=== PATIENT | female | born 1995 | race Two or more races ===

== ENCOUNTER → 2016-07-06 | Outpatient (CLI) | payer OTHER ==
[~2016-07-06] MED LIST: LIDOCAINE 1%, 20ML ONE; OMNIPAQUE 350 MG/ML, 100ML BOTTLE ONE; SODIUM BICARBONATE 4.2%, 5ML ONE
== END | disposition home or self-care (01) ==
LOC: RAD 10:53
PROVIDERS: ATTEND Nurse Practitioner Primary Care
DX: E06.3 Autoimmune thyroiditis (principal); E55.9 Vitamin D deficiency, unspecified; E05.80 Other thyrotoxicosis without thyrotoxic crisis or storm; E61.1 Iron deficiency; D64.9 Anemia, unspecified; E01.1 Iodine-deficiency related multinodular (endemic) goiter; R06.83 Snoring; G47.30 Sleep apnea, unspecified; E78.2 Mixed hyperlipidemia; E04.1 Nontoxic single thyroid nodule
CPT/HCPCS: 70491; J3490; Q9967

== ENCOUNTER 2016-09-17 18:32 | Emergency (ER) | payer OTHER ==
[~2016-09-17] VITALS: Ht 165.1 cm; Wt 86.0 kg
[2016-09-17 18:41] VITALS: BP 147/96
== END 2016-09-17 19:40 | disposition home or self-care (01) ==
LOC: ED 19:34
DX: K64.4 Residual hemorrhoidal skin tags (principal); E05.90 Thyrotoxicosis, unspecified without thyrotoxic crisis or storm
CPT/HCPCS: 99281

== ENCOUNTER 2016-11-06 15:06 | Emergency (ER) | payer OTHER ==
[~2016-11-06] VITALS: Ht 165.1 cm; Wt 81.4 kg
[2016-11-06 15:06] VITALS: BP 139/88
[2016-11-06 16:54] LABS: HCG UR OBC PASS
== END 2016-11-06 17:45 | disposition home or self-care (01) ==
LOC: ED 17:42
DX: N30.90 Cystitis, unspecified without hematuria (principal); E11.9 Type 2 diabetes mellitus without complications
CPT/HCPCS: 81001; 81025; 87086; 99284

== ENCOUNTER 2016-12-10 16:54 | Emergency (ER) | payer OTHER ==
[~2016-12-10] VITALS: Ht 165.1 cm; Wt 80.4 kg
[2016-12-10] MEDS ORDERED: FAMOTIDINE 20 MG TABLET PO ONE (19:00)
[2016-12-10] MEDS ORDERED: FAMOTIDINE 20 MG TABLET ONE (19:14)
[2016-12-10 19:28] LABS: PATH.CAST-FLAG NOT PRESENT; SPERM-FLAG NOT PRESENT; SRC-FLAG NOT PRESENT; XTAL-FLAG NOT PRESENT; YLC-FLAG NOT PRESENT
[2016-12-10 19:31] LABS: HCG UR OBC PASS
[2016-12-10] MEDS ORDERED: FLUCONAZOLE 100 MG TABLET PO ONE (20:00)
[2016-12-10 20:21] VITALS: BP 118/75
== END 2016-12-10 20:22 | disposition home or self-care (01) ==
LOC: ED 20:16
DX: B37.3 Candidiasis of vulva and vagina (principal); R30.0 Dysuria
CPT/HCPCS: 81001; 81025; 87086; 99284; Q0177

== ENCOUNTER 2017-01-27 16:04 | Emergency (ER) | payer OTHER ==
[~2017-01-27] VITALS: Ht 167.6 cm; Wt 83.6 kg
[2017-01-27] MEDS ORDERED: ONDANSETRON 2MG/ML, 2ML ONE (16:24)
[2017-01-27] MEDS ORDERED: SODIUM CHLORIDE 0.9% 1,000ML IVBOLUS ONE (16:30)
[2017-01-27] MEDS ORDERED: ONDANSETRON 2MG/ML, 2ML IVPush ONE (16:30)
[2017-01-27] MEDS ORDERED: SODIUM CHLORIDE FLUSH 10ML SYR IVF ONE (16:30)
[2017-01-27 16:51] LABS: HEMATOCRIT 44.6 % (34.6-47.8); HEMOGLOBIN 14.6 g/dL (11.7-16.4); WHITE BLOOD COUNT 13.7 x10^3/uL (3.4-10)
[2017-01-27 16:57] LABS: BLOOD UREA NITROGEN 8 mg/dL (7-18)
[2017-01-27] MEDS ORDERED: METOCLOPRAMIDE 5 MG/ML, 2ML IVPush ONE (17:00)
[2017-01-27] MEDS ORDERED: METOCLOPRAMIDE 5 MG/ML, 2ML ONE (17:02)
[2017-01-27] MEDS ORDERED: METF500T4 PO (17:22)
[2017-01-27 18:30] VITALS: BP 119/66
== END 2017-01-27 18:54 | disposition home or self-care (01) ==
LOC: ED 18:15
DX: O21.9 Vomiting of pregnancy, unspecified (principal); R11.0 Nausea; Z3A.00 Weeks of gestation of pregnancy not specified; E11.9 Type 2 diabetes mellitus without complications
CPT/HCPCS: 36415; 80048; 81003; 82040; 84703; 85025; 93005; 96361; 96374; 99285; J2765; J7030

== ENCOUNTER 2017-02-04 20:42 | Emergency (ER) | payer OTHER ==
[~2017-02-04] VITALS: Ht 165.1 cm; Wt 82.7 kg
[~2017-02-04 20:42] MED LIST changes: -LIDOCAINE 1%, 20ML ONE; +METF500T4 PO; -OMNIPAQUE 350 MG/ML, 100ML BOTTLE ONE; -SODIUM BICARBONATE 4.2%, 5ML ONE
[2017-02-04 20:44] VITALS: BP 148/81
[2017-02-04] MEDS ORDERED: SODIUM CHLORIDE FLUSH 10ML SYR IVF ONE (21:00)
[2017-02-04] MEDS ORDERED: SODIUM CHLORIDE 0.9% 1,000ML IVBOLUS ONE (21:00)
[2017-02-04 21:07] LABS: HEMATOCRIT 43.7 % (34.6-47.8); HEMOGLOBIN 14.1 g/dL (11.7-16.4); WHITE BLOOD COUNT 18.5 x10^3/uL (3.4-10)
[2017-02-04 21:20] LABS: ASPARTATE AMINO TRANSFERASE 11 U/L (15-37); BLOOD UREA NITROGEN 7 mg/dL (7-18)
[2017-02-04 21:39] LABS: PATH.CAST-FLAG NOT PRESENT; SPERM-FLAG NOT PRESENT; SRC-FLAG NOT PRESENT; XTAL-FLAG NOT PRESENT; YLC-FLAG NOT PRESENT
== END 2017-02-04 22:25 | disposition home or self-care (01) ==
LOC: ED 21:22
DX: O20.0 Threatened abortion (principal); O24.911 Unspecified diabetes mellitus in pregnancy, first trimester; E05.90 Thyrotoxicosis, unspecified without thyrotoxic crisis or storm; Z3A.01 Less than 8 weeks gestation of pregnancy
CPT/HCPCS: 36415; 76801; 80053; 81001; 84702; 85025; 86901; 87086; 96360; 99285; J7030

== ENCOUNTER 2017-02-16 13:02 | Emergency (ER) | payer OTHER, MEDICAID ==
[~2017-02-16] VITALS: Ht 165.1 cm; Wt 80.6 kg
[2017-02-16 13:04] VITALS: BP 140/85
== END 2017-02-16 13:35 | disposition home or self-care (01) ==
LOC: ED 13:18
DX: O26.891 Other specified pregnancy related conditions, first trimester (principal); S46.912A Strain of unspecified muscle, fascia and tendon at shoulder and upper arm level, left arm, initial encounter; S39.012A Strain of muscle, fascia and tendon of lower back, initial encounter; O99.281 Endocrine, nutritional and metabolic diseases complicating pregnancy, first trimester; O24.311 Unspecified pre-existing diabetes mellitus in pregnancy, first trimester; Z3A.01 Less than 8 weeks gestation of pregnancy; X58.XXXA Exposure to other specified factors, initial encounter; Y93.89 Activity, other specified; Y99.8 Other external cause status; Y92.89 Other specified places as the place of occurrence of the external cause
CPT/HCPCS: 99282

== ENCOUNTER 2017-07-18 17:38 | Outpatient (CLI) | payer BC, MEDICAID ==
[~2017-07-18] VITALS: Ht 165.1 cm; Wt 80.9 kg
[2017-07-18 19:36] VITALS: BP 123/84
[2017-07-18 20:00] LABS: MICROSCOPIC INDICATED
[2017-07-20] MEDS ORDERED: PREN1TAB10 PO (17:38)
[2017-07-20] MEDS ORDERED: ONDA4TAB10 PO (17:39)
[2017-07-20] MEDS ORDERED: NITR100C56 PO (18:41)
== END 2017-07-18 20:20 | disposition home or self-care (01) ==
LOC: LDOP 17:38
PROVIDERS: ATTEND Obstetrics & Gynecology
DX: O16.3 Unspecified maternal hypertension, third trimester (principal); Z3A.28 28 weeks gestation of pregnancy
CPT/HCPCS: 59025; 81001; 99201; 99211; G0463

== ENCOUNTER 2017-07-28 21:14 | Emergency (ER) | payer BC, MEDICAID ==
[~2017-07-28] VITALS: Ht 165.1 cm; Wt 79.1 kg
[~2017-07-28 21:14] MED LIST changes: +NITR100C56 PO; +ONDA4TAB10 PO; +PREN1TAB10 PO
[2017-07-28] MEDS ORDERED: ONDANSETRON ODT 4 MG ONE (21:55)
[2017-07-28] MEDS ORDERED: SODIUM CHLORIDE FLUSH 10ML SYR IVF ONE (22:00)
[2017-07-28] MEDS ORDERED: METOCLOPRAMIDE 5 MG/ML, 2ML IVPush ONE (22:00)
[2017-07-28] MEDS ORDERED: ONDANSETRON ODT 4 MG PO ONE ×2 (22:00→22:30)
[2017-07-28] MEDS ORDERED: SODIUM CHLORIDE 0.9% 1,000ML IVBOLUS ONE (22:00)
[2017-07-28 22:13] LABS: MEAN CORPUSCULAR HEMOGLOBIN 29.1 pg (27.0-34.8); MEAN CORPUSCULAR HGB CONC 33.3 g/dL (32.4-35.8); MEAN CORPUSCULAR VOLUME 87.6 fL (80-100); PLATELET COUNT 258 x10^3/uL (130-400); RED CELL DISTRIBUTION WIDTH 12.6 % (9.6-15.2)
[2017-07-28 22:22] LABS: ALANINE AMINOTRANSFERASE 32 U/L (12-78); ALBUMIN 2.8 g/dL (3.4-5.0); ANION GAP 11 mmol/L (5-15); CHLORIDE 107 mmol/L (98-107); CREATININE 0.45 mg/dL (0.55-1.02); MD YES
[2017-07-28 22:34] LABS: <PLATELET ESTIMATE> ADEQUATE; <PLT MORPHOLOGY> NORMAL PLT MORPH; BAND#(MANUAL) 1.37 x10^3/uL; BANDS%(MANUAL) 8 % (0-7); EOS#(MANUAL) 0.17 x10^3/uL (0.0-0.4); EOS% (MANUAL) 1 % (1-7); LYMPH#(MANUAL) 2.05 x10^3/uL (1-3.4); LYMPHS% (MANUAL) 12 % (22-44); MONOS#(MANUAL) 0.34 x10^3/uL (0.3-2.7); MONOS% (MANUAL) 2 % (2-9); SEG#(MANUAL) 13.17 x10^3/uL (1.8-6.8); SEGS% (MANUAL) 77 % (42-75)
[2017-07-28 22:35] LABS: POLYCHROMASIA 1+
[2017-07-28 22:39] LABS: ALKALINE PHOSPHATASE 145 U/L (45-117); BILIRUBIN,TOTAL 0.5 mg/dL (0.2-1.0); TOTAL PROTEIN 7.2 g/dL (6.4-8.2)
[2017-07-28 23:15] LABS: CULTURE INDICATED? YES; MICROSCOPIC INDICATED
[2017-07-29] MEDS ORDERED: BUPIVACAINE 0.25% ONE (01:25)
[2017-07-29] MEDS ORDERED: SODIUM CHLORIDE 0.9% 1,000ML IVBOLUS ONE (02:30)
[2017-07-29] MEDS ORDERED: MORPHINE SULFATE 4 MG/ML, 1ML ONE ×2 (03:11→05:24)
[2017-07-29] MEDS: MORPHINE SULFATE 4 MG/ML, 1ML IVPush PRN ×2 (03:15→06:00)
[2017-07-29 05:42] VITALS: BP 128/81
[2017-07-29] MEDS ORDERED: SODIUM CHLORIDE 0.9% 1,000 ML IV ONE (06:07)
[2017-07-29] MEDS ORDERED: D5%-LACTATED RINGERS 1,000 ML IV SCH (07:03)
[2017-07-29] MEDS ORDERED: ONDANSETRON ODT 4 MG PO PRN (07:30)
[2017-07-29] MEDS ORDERED: ONDANSETRON 2MG/ML, 2ML IVPush PRN (07:30)
[2017-07-29] MEDS ORDERED: D5%-LACTATED RINGERS 500ML IVBOLUS ONE (07:30)
== END 2017-07-29 02:21 | disposition other institution (70) ==
LOC: ED 22:46 → UNDOADMIN 07-29 06:11 → EDIP 07-29 06:11
DX: O99.613 Diseases of the digestive system complicating pregnancy, third trimester (principal); K92.89 Other specified diseases of the digestive system; D72.825 Bandemia; Z3A.29 29 weeks gestation of pregnancy; R82.99 Other abnormal findings in urine
CPT/HCPCS: 36415; 74181; 76700; 76815; 80053; 81001; 83690; 84703; 85025; 87086; 96361; 96374; 96376; 99285; J7030; Q0162; J7121

== ENCOUNTER 2017-07-29 07:14 | Observation (INO) | payer BC, MEDICAID ==
[~2017-07-29] VITALS: Ht 165.1 cm; Wt 75.9 kg
[2017-07-29] MEDS ORDERED: D5%-LACTATED RINGERS 1,000 ML IV SCH (07:35)
[2017-07-29] MEDS ORDERED: D5%-LACTATED RINGERS 500ML IVBOLUS ONE (08:00)
[2017-07-29] MEDS ORDERED: ONDANSETRON ODT 4 MG PO PRN (08:00)
[2017-07-29] MEDS ORDERED: OXYcodone/APAP 5/325MG TABLET ONE (11:54)
[2017-07-29] MEDS ORDERED: OXYcodone/APAP 5/325MG TABLET PO ONE (12:00)
== END 2017-07-29 13:42 | disposition home or self-care (01) ==
LOC: LDOP 07:14 → LDIP 07:26
PROVIDERS: ADMIT Obstetrics & Gynecology; ATTEND Obstetrics & Gynecology
DX: O26.613 Liver and biliary tract disorders in pregnancy, third trimester (principal); Z3A.29 29 weeks gestation of pregnancy
CPT/HCPCS: 59025; 96360; 96361; G0378; 59160; J7121

== ENCOUNTER 2017-09-09 12:30 | Outpatient (CLI) | payer BC, MEDICAID ==
[~2017-09-09] VITALS: Ht 165.1 cm; Wt 79.0 kg
[2017-09-09 12:43] VITALS: BP 123/86
[2017-09-09 13:12] LABS: CULTURE INDICATED? YES; MICROSCOPIC INDICATED
[2017-09-09] MEDS ORDERED: LACTATED RINGERS 1,000 ML IV SCH (13:30)
[2017-09-09] MEDS ORDERED: ONDANSETRON 2MG/ML, 2ML IVPush ONE (13:30)
[2017-09-09] MEDS ORDERED: OXYcodone 5 MG/5 ML ORAL.SOL UDC PO PRN (13:30)
[2017-09-09] MEDS ORDERED: LACTATED RINGERS 1,000 ML IVBOLUS ONE (13:30)
[2017-09-09 13:49] LABS: BASOPHILS # (AUTO) 0.05 x10^3/uL (0-0.1); BASOPHILS % (AUTO) 0 % (0-1); EOSINOPHILS # (AUTO) 0.09 x10^3/uL (0-0.4); EOSINOPHILS % (AUTO) 1 % (1-7); LYMPHOCYTES # (AUTO) 1.78 x10^3/uL (1-3.4); LYMPHOCYTES % (AUTO) 16 % (22-44); MD NO; MEAN CORPUSCULAR HEMOGLOBIN 29.8 pg (27.0-34.8); MEAN CORPUSCULAR HGB CONC 33.8 g/dL (32.4-35.8); MEAN PLATELET VOLUME 7.9 fL (7.4-10.4); MONOCYTES # (AUTO) 0.37 x10^3/uL (0.2-0.8); MONOCYTES % (AUTO) 3 % (2-9); NEUTROPHILS # (AUTO) 8.98 x10^3/uL (1.8-6.8); NEUTROPHILS % (AUTO) 80 % (42-75); PLATELET COUNT 348 x10^3/uL (130-400); RED BLOOD COUNT 4.79 x10^6/uL (3.82-5.3); RED CELL DISTRIBUTION WIDTH 13.1 % (9.6-15.2)
[2017-09-09] MEDS ORDERED: LIDOCAINE-MPF 1%, 5ML ONE (13:55)
[2017-09-09 13:59] LABS: ALANINE AMINOTRANSFERASE 37 U/L (12-78); ALBUMIN 3.1 g/dL (3.4-5.0); ANION GAP 10 mmol/L (5-15); CHLORIDE 107 mmol/L (98-107); CREATININE 0.54 mg/dL (0.55-1.02)
[2017-09-09 14:01] LABS: ALKALINE PHOSPHATASE 156 U/L (45-117); BILIRUBIN,TOTAL 0.5 mg/dL (0.2-1.0); TOTAL PROTEIN 8.2 g/dL (6.4-8.2)
[2017-09-09] MEDS ORDERED: OXYcodone 5 MG/5 ML ORAL.SOL UDC ONE (14:27)
[2017-09-09] MEDS ORDERED: ONDANSETRON ODT 4 MG PO ONE (15:00)
[2017-09-09] MEDS ORDERED: CEFTRIAXONE PMX 1GM/50ML 50 ML IV ONE (15:30)
[2017-09-09] MEDS ORDERED: ONDANSETRON ODT 4 MG ONE (15:42)
[2017-09-09] MEDS ORDERED: ONDANSETRON 4 MG TABLET ONE (15:42)
== END 2017-09-09 17:00 | disposition home or self-care (01) ==
LOC: LDOP 12:30
PROVIDERS: ATTEND Obstetrics & Gynecology
DX: O26.893 Other specified pregnancy related conditions, third trimester (principal); R10.9 Unspecified abdominal pain; Z3A.36 36 weeks gestation of pregnancy
CPT/HCPCS: 36415; 59025; 80053; 81001; 83690; 85025; 86850; 86900; 87086; 96360; 96361; 99211; J0696; J7120; Q0162; G0463

== ENCOUNTER 2017-09-11 03:21 | Outpatient (CLI) | payer BC, MEDICAID ==
[~2017-09-11] VITALS: Ht 165.1 cm; Wt 79.1 kg
[2017-09-11 03:54] VITALS: BP 118/77
[2017-09-11 04:26] LABS: MICROSCOPIC INDICATED
[2017-09-12] MEDS ORDERED: NITR100C56 PO (12:03)
== END 2017-09-11 04:52 | disposition home or self-care (01) ==
LOC: LDOP 03:21
PROVIDERS: ATTEND Obstetrics & Gynecology
DX: O26.893 Other specified pregnancy related conditions, third trimester (principal); R10.9 Unspecified abdominal pain; M54.9 Dorsalgia, unspecified; Z3A.37 37 weeks gestation of pregnancy
CPT/HCPCS: 59025; 81001; 87086; 87106; 99211; G0463

== ENCOUNTER 2017-09-12 11:52 | Outpatient (CLI) | payer BC, MEDICAID ==
[~2017-09-12] VITALS: Ht 165.1 cm; Wt 79.1 kg
[2017-09-12 12:03] VITALS: BP 117/70
[2017-09-12] MEDS ORDERED: NITR100C56 PO (12:03)
== END 2017-09-12 13:20 | disposition home or self-care (01) ==
LOC: LDOP 11:52
PROVIDERS: ATTEND Obstetrics & Gynecology
DX: Z34.83 Encounter for supervision of other normal pregnancy, third trimester (principal); Z3A.37 37 weeks gestation of pregnancy
CPT/HCPCS: 59025; 99211; G0463

== ENCOUNTER 2017-09-13 11:49 | Outpatient (CLI) | payer BC, MEDICAID ==
[~2017-09-13] VITALS: Ht 165.1 cm; Wt 77.7 kg
[2017-09-13 12:10] VITALS: BP 114/72
== END 2017-09-13 13:05 | disposition home or self-care (01) ==
LOC: LDOP 11:49
PROVIDERS: ATTEND Obstetrics & Gynecology
DX: O42.913 Preterm premature rupture of membranes, unspecified as to length of time between rupture and onset of labor, third trimester (principal); Z3A.37 37 weeks gestation of pregnancy
CPT/HCPCS: 59025; 84112; 99211; G0463

== ENCOUNTER 2017-10-01 02:54 | Emergency (ER) | payer BC, MEDICAID ==
[~2017-10-01] VITALS: Ht 165.1 cm; Wt 75.7 kg
[~2017-10-01 02:54] MED LIST changes: +IBUP-1222 PO
[2017-10-01] MEDS ORDERED: OXYC-302 PO (03:04)
[2017-10-01] MEDS ORDERED: MORPHINE SULFATE 4 MG/ML, 1ML IVPush PRN (03:30)
[2017-10-01] MEDS ORDERED: ONDANSETRON ODT 4 MG PO ONE (03:30)
[2017-10-01] MEDS ORDERED: SODIUM CHLORIDE FLUSH 10ML SYR IVF ONE (03:30)
[2017-10-01 03:39] LABS: BASOPHILS # (AUTO) 0.07 x10^3/uL (0-0.1); BASOPHILS % (AUTO) 1 % (0-1); EOSINOPHILS # (AUTO) 0.41 x10^3/uL (0-0.4); EOSINOPHILS % (AUTO) 4 % (1-7); LYMPHOCYTES # (AUTO) 3.49 x10^3/uL (1-3.4); LYMPHOCYTES % (AUTO) 36 % (22-44); MD NO; MEAN CORPUSCULAR HGB CONC 33.2 g/dL (32.4-35.8); MEAN CORPUSCULAR VOLUME 87.5 fL (80-100); MEAN PLATELET VOLUME 7.5 fL (7.4-10.4); MONOCYTES # (AUTO) 0.55 x10^3/uL (0.2-0.8); MONOCYTES % (AUTO) 6 % (2-9); NEUTROPHILS # (AUTO) 5.16 x10^3/uL (1.8-6.8); NEUTROPHILS % (AUTO) 53 % (42-75); PLATELET COUNT 497 x10^3/uL (130-400); RED BLOOD COUNT 4.38 x10^6/uL (3.82-5.3); RED CELL DISTRIBUTION WIDTH 12.8 % (9.6-15.2)
[2017-10-01] MEDS ORDERED: HYDROmorphone 2 MG/ML, 1ML ONE (03:43)
[2017-10-01] MEDS ORDERED: ONDANSETRON ODT 4 MG ONE (03:43)
[2017-10-01 03:51] LABS: ALANINE AMINOTRANSFERASE 35 U/L (12-78); ALBUMIN 3.3 g/dL (3.4-5.0); ANION GAP 9 mmol/L (5-15); CHLORIDE 109 mmol/L (98-107); CREATININE 0.57 mg/dL (0.55-1.02)
[2017-10-01 03:54] LABS: ALKALINE PHOSPHATASE 115 U/L (45-117); BILIRUBIN,TOTAL 0.3 mg/dL (0.2-1.0); TOTAL PROTEIN 7.6 g/dL (6.4-8.2)
[2017-10-01] MEDS ORDERED: HYDROmorphone 2 MG/ML, 1ML IM ONE (04:00)
[2017-10-01] MEDS ORDERED: HYDROmorphone 1 MG/ML, 1ML IM ONE (04:00)
[2017-10-01 04:42] LABS: MICROSCOPIC AUTO
[2017-10-01 04:46] LABS: CULTURE INDICATED? YES
[2017-10-01 05:49] VITALS: BP 119/79
== END 2017-10-01 05:51 | disposition home or self-care (01) ==
LOC: ED 03:51
DX: K80.70 Calculus of gallbladder and bile duct without cholecystitis without obstruction (principal); N30.00 Acute cystitis without hematuria; E11.9 Type 2 diabetes mellitus without complications; E05.90 Thyrotoxicosis, unspecified without thyrotoxic crisis or storm
CPT/HCPCS: 36415; 76700; 80053; 81001; 83690; 85025; 87086; 96372; 99285; J1170; Q0162

== ENCOUNTER 2017-10-20 12:06 | Emergency (ER) | payer BC, MEDICAID ==
[~2017-10-20] VITALS: Ht 165.1 cm; Wt 77.2 kg
[~2017-10-20 12:06] MED LIST changes: -METF500T4 PO; +METF500T5 PO; +OXYC-302 PO
[2017-10-20 12:08] VITALS: BP 133/87
== END 2017-10-20 13:27 | disposition home or self-care (01) ==
LOC: ED 13:15
DX: S31.119D Laceration without foreign body of abdominal wall, unspecified quadrant without penetration into peritoneal cavity, subsequent encounter (principal); E11.9 Type 2 diabetes mellitus without complications; E05.90 Thyrotoxicosis, unspecified without thyrotoxic crisis or storm; X58.XXXD Exposure to other specified factors, subsequent encounter
CPT/HCPCS: 99283

== ENCOUNTER 2017-12-19 23:40 | Emergency (ER) | payer BC, MEDICAID ==
[~2017-12-19] VITALS: Ht 165.1 cm; Wt 82.1 kg
[~2017-12-19 23:40] MED LIST changes: +METF500T17 PO; -METF500T5 PO
[2017-12-19 23:42] VITALS: BP 136/82
[2017-12-20 00:16] LABS: MICROSCOPIC AUTO
[2017-12-20 00:22] LABS: CULTURE INDICATED? YES
[2017-12-20 00:37] LABS: BASOPHILS # (AUTO) 0.06 x10^3/uL (0-0.1); BASOPHILS % (AUTO) 1 % (0-1); EOSINOPHILS # (AUTO) 1.01 x10^3/uL (0-0.4); EOSINOPHILS % (AUTO) 8 % (1-7); LYMPHOCYTES # (AUTO) 2.51 x10^3/uL (1-3.4); LYMPHOCYTES % (AUTO) 20 % (22-44); MD NO; MEAN CORPUSCULAR HEMOGLOBIN 27.7 pg (27.0-34.8); MEAN CORPUSCULAR HGB CONC 33.3 g/dL (32.4-35.8); MEAN CORPUSCULAR VOLUME 83.2 fL (80-100); MEAN PLATELET VOLUME 7.7 fL (7.4-10.4); MONOCYTES # (AUTO) 0.49 x10^3/uL (0.2-0.8); MONOCYTES % (AUTO) 4 % (2-9); NEUTROPHILS # (AUTO) 8.52 x10^3/uL (1.8-6.8); NEUTROPHILS % (AUTO) 68 % (42-75); PLATELET COUNT 433 x10^3/uL (130-400); RED BLOOD COUNT 4.24 x10^6/uL (3.82-5.3); RED CELL DISTRIBUTION WIDTH 12.8 % (9.6-15.2)
[2017-12-20 00:48] LABS: ALANINE AMINOTRANSFERASE 27 U/L (12-78); ALBUMIN 3.3 g/dL (3.4-5.0); ANION GAP 4 mmol/L (5-15); CALCIUM 8.7 mg/dL (8.5-10.1); CHLORIDE 109 mmol/L (98-107); CREATININE 0.59 mg/dL (0.55-1.02)
[2017-12-20 00:50] LABS: ALKALINE PHOSPHATASE 77 U/L (45-117); BILIRUBIN,TOTAL 0.2 mg/dL (0.2-1.0); TOTAL PROTEIN 7.4 g/dL (6.4-8.2)
[2017-12-20 01:27] LABS: HCG UR SG 1.017 (1.003-1.030)
== END 2017-12-20 01:54 | disposition home or self-care (01) ==
LOC: ED 23:49
DX: R10.11 Right upper quadrant pain (principal); E11.9 Type 2 diabetes mellitus without complications; R11.2 Nausea with vomiting, unspecified; M54.9 Dorsalgia, unspecified; Z90.49 Acquired absence of other specified parts of digestive tract
CPT/HCPCS: 36415; 76700; 80053; 81001; 81025; 83690; 85025; 87086; 99285

== ENCOUNTER 2018-09-06 17:54 | Emergency (ER) | payer BC ==
[~2018-09-06] VITALS: Ht 165.1 cm; Wt 89.0 kg
[2018-09-06 18:21] LABS: BASOPHILS # (AUTO) 0.07 x10^3/uL (0-0.1); BASOPHILS % (AUTO) 1 % (0-1); EOSINOPHILS % (AUTO) 2 % (1-7); LYMPHOCYTES # (AUTO) 2.48 x10^3/uL (1-3.4); LYMPHOCYTES % (AUTO) 27 % (22-44); MD NO; MEAN CORPUSCULAR HEMOGLOBIN 26.1 pg (27.0-34.8); MEAN CORPUSCULAR VOLUME 81.7 fL (80-100); MEAN PLATELET VOLUME 7.3 fL (7.4-10.4); MONOCYTES # (AUTO) 0.63 x10^3/uL (0.2-0.8); MONOCYTES % (AUTO) 7 % (2-9); NEUTROPHILS # (AUTO) 5.76 x10^3/uL (1.8-6.8); NEUTROPHILS % (AUTO) 63 % (42-75); PLATELET COUNT 484 x10^3/uL (130-400); RED BLOOD COUNT 4.96 x10^6/uL (3.82-5.3); RED CELL DISTRIBUTION WIDTH 14.8 % (9.6-15.2)
[2018-09-06 18:33] LABS: ALANINE AMINOTRANSFERASE 33 U/L (12-78); ALBUMIN 3.6 g/dL (3.4-5.0); ANION GAP 6 mmol/L (5-15); CALCIUM 8.4 mg/dL (8.5-10.1); CHLORIDE 112 mmol/L (98-107); CREATININE 0.55 mg/dL (0.55-1.02)
[2018-09-06 18:38] LABS: ALKALINE PHOSPHATASE 88 U/L (45-117); BILIRUBIN,TOTAL 0.2 mg/dL (0.2-1.0); TOTAL PROTEIN 7.8 g/dL (6.4-8.2)
--- NOTE | 2018-09-06 19:37 | NUR ---
PT. TO ROOM FROM LOBBY AT THIS TIME.
[2018-09-06 19:58] LABS: CULTURE INDICATED? YES; MICROSCOPIC INDICATED
[2018-09-06] MEDS ORDERED: IBUPROFEN 200 MG TABLET PO ONE (20:30)
[2018-09-06] MEDS ORDERED: CEFDINIR 300 MG CAPSULE PO ONE (20:30)
[2018-09-06] MEDS ORDERED: ACETAMINOPHEN 500 MG TABLET PO ONE (20:30)
[2018-09-06] MEDS ORDERED: ACETAMINOPHEN 500 MG TABLET ONE (20:38)
[2018-09-06] MEDS ORDERED: IBUPROFEN 600 MG TABLET ONE (20:39)
[2018-09-06] MEDS ORDERED: CEFDINIR 300 MG CAPSULE ONE (20:39)
[2018-09-06 20:47] VITALS: BP 114/75
== END 2018-09-06 20:53 | disposition home or self-care (01) ==
LOC: ED 20:20
DX: N30.00 Acute cystitis without hematuria (principal); Z90.49 Acquired absence of other specified parts of digestive tract; E03.9 Hypothyroidism, unspecified; E11.9 Type 2 diabetes mellitus without complications
CPT/HCPCS: 36415; 80053; 81001; 83690; 84703; 85025; 87086; 99284